=== PATIENT | male | born 1945 | race Caucasian/White ===

== ENCOUNTER 2022-02-20 12:06 | Outpatient (CLI) | payer OTHER, SELFPAY ==
--- NOTE | 2022-02-20 12:37 | USCV_ITS ---
Warren Ordonez Age: 76 Gender: M : 1945 Exam Date: 02/20/2022 12:53 Ordering Phys: Shawna Betts NP Technologist: [place] [facility] [place]: carotid stenosis Risk Factors: Previous Vascular Surgery: rt stent placemant Right Brachial BP: / Left Brachial BP: / Right Left Velocity (cm/s) Spectral Plaque Velocity (cm/s) Spectral Plaque Syst/Diast Broadening Syst/Diast Broadening 105.80/16.50 Prox CCA 115.90/ 24.50 90.70/ 16.80 Mid CCA 120.80/ 24.50 103.00/17.90 Distal CCA 106.10/ 21.20 113.60/22.90 Prox ICA 82.80 / 17.90 127.50/20.10 Mid ICA 114.10/ 22.40 82.80/ 17.90 Distal ICA 98.20 / 18.10 97.60 ECA 99.20 1.20 ICA/CCA 0.94 Antegrade Vertebral Antegrade 89.50/ 16.80 cm/s 43.70/ 7.60 cm/s Bi Subclavian Bi 131.7 169.1 0 0 FINDINGS Comparison: none available. Patent right carotid stent. No significant elevation of velocity right ICA. Moderate irregular plaque left common carotid artery through the bifurcation. No significant stenosis. Antegrade vertebral arteries. CONCLUSIONS Bilateral ICA stenosis less than 50%. Carotid plaque, greater on left. Patent right ICA stent. Dr. Noreen Wallis DO (Electronically Signed) Final Date: 20 February 2022 16:00 S
--- NOTE | 2022-02-20 12:37 | USCV_ITS ---
Warren Ordonez Age: 76 Gender: M : 1945 Exam Date: 02/20/2022 14:14 Ordering Phys: Shawna Betts NP Technologist: Exam Location: [facility] [place] Indication: claudication RIGHT LEFT Brachial 161.00 mmHg Brachial 165.00 mmHg Pressure (mmHg) Waveform Pressure (mmHg) Waveform 74.00 [employer] 105.00 90.00 DPA 103.00 0.55 Ankle/Brachial Index 0.64 FINDINGS Resting EDY of 0.55 on the right side and 0.64 on the left side PVR waveforms showing loss of dicrotic notch bilaterally with relatively diminished amplitude at the right ankle. CONCLUSIONS Abnormal resting ABIs and PVR waveforms bilaterally suggesting moderate to severe peripheral artery disease on the right side and moderate peripheral artery disease on the left side Dr Matt Leach MD [facility] (Electronically Signed) Final Date: 20 February 2022 21:06 S
== END 2022-02-20 12:07 | disposition home or self-care (01) ==
PROVIDERS: PCP Nurse Practitioner Primary Care; Visit Provider Nurse Practitioner Primary Care
DX: I65.23 Occlusion and stenosis of bilateral carotid arteries (principal); I73.9 Peripheral vascular disease, unspecified
CPT/HCPCS: 93880; 93922